=== PATIENT | male | born 1960 | race Caucasian/White ===

== ENCOUNTER 2019-03-31 12:34 | Outpatient (REF) | payer BC, SELFPAY | END 2019-03-31 12:54 | LOC: NCHCN 12:34 | PROVIDERS: PCP Internal Medicine; Visit Provider Internal Medicine | DX: Z00.00 Encounter for general adult medical examination without abnormal findings (principal); Z12.5 Encounter for screening for malignant neoplasm of prostate | CPT/HCPCS: 84153 ==

== ENCOUNTER 2021-08-31 15:29 | Outpatient (REF) | payer OTHER, SELFPAY ==
[2021-08-31 17:00] LABS: BUN 20 mg/dL (7-18); Calcium 8.7 mg/dL (8.5-10.1); Calculated LDL 152 mg/dL (<100); Chloride 102 mmol/L (98-107); Cholesterol 259 mg/dL (<200); Glucose 93 mg/dL (74-106); HDL Cholesterol 99 mg/dL (40-60); Potassium 4.8 mmol/L (3.5-5.1); Sodium 138 mmol/L (136-145); Triglyceride 44 mg/dL (<150)
== END 2021-08-31 15:30 | disposition home or self-care (01) ==
LOC: NCHCN 15:29
PROVIDERS: PCP Internal Medicine; Visit Provider Internal Medicine
DX: Z00.00 Encounter for general adult medical examination without abnormal findings (principal); I72.3 Aneurysm of iliac artery; Z13.220 Encounter for screening for lipoid disorders
CPT/HCPCS: 80048; 80061

== ENCOUNTER 2023-01-05 09:40 | Outpatient (REF) | payer OTHER, SELFPAY ==
[2023-01-05 14:30] LABS: ALT 37 U/L (16-63); AST 35 U/L (15-37); Albumin 3.5 g/dL (3.4-5.0); Alkaline Phosphatase 65 U/L (46-116); Anion Gap 7.2 mmol/L (3-11); BUN 22 mg/dL (7-18); Bilirubin, Total 0.6 mg/dL (0.2-1.0); CO2 28.8 mmol/L (21.0-32.0); CREATININE 0.8 mg/dL (0.70-1.30); Calcium 8.8 mg/dL (8.5-10.1); Calculated LDL 130 mg/dL (<100); Chloride 102 mmol/L (98-107); Cholesterol 220 mg/dL (<200); Estimated GFR 99.44 (mL/min/1.73m2); Glucose 89 mg/dL (74-106); HDL Cholesterol 82 mg/dL (40-60); Sodium 138 mmol/L (136-145); Total Protein 7.8 g/dL (6.4-8.2); Triglyceride 42 mg/dL (<150)
[2023-01-05 22:56] LABS: PSA, Screening 1.3 ng/mL (<=4.5)
== END 2023-01-05 09:41 | disposition home or self-care (01) ==
LOC: NCHCN 09:40
PROVIDERS: PCP Internal Medicine; Visit Provider Internal Medicine
DX: Z00.00 Encounter for general adult medical examination without abnormal findings (principal); Z12.5 Encounter for screening for malignant neoplasm of prostate; E78.5 Hyperlipidemia, unspecified
CPT/HCPCS: 80053; 80061; 84153

== ENCOUNTER 2024-09-04 18:20 | Outpatient (REF) | payer OTHER, SELFPAY ==
[2024-09-04 21:44] LABS: HCT 41.9 % (40.0-50.0); HGB 13.4 g/dL (13.5-17.5); MCH 26.9 pg (27.0-33.0); MCV 84 fL (80-95); MPV 9.3 fL (8.0-11.0); Platelet Count 330 10^3/uL (130-400); RBC 4.98 10^6/uL (4.36-5.78); RDW 13.5 % (11.8-14.1); RDW-SD 41.6 fL
[2024-09-04 23:13] LABS: ALT 35 U/L (16-63); AST 33 U/L (15-37); Albumin 3.7 g/dL (3.4-5.0); Alkaline Phosphatase 67 U/L (46-116); Anion Gap 5.2 mmol/L (3-11); BUN 18 mg/dL (7-18); Bilirubin, Total 0.53 mg/dL (0.2-1.0); CO2 28.8 mmol/L (21.0-32.0); Calcium 9.5 mg/dL (8.5-10.1); Calculated LDL 119 mg/dL (<100); Chloride 103 mmol/L (98-107); Cholesterol 218 mg/dL (<200); Estimated GFR 84.05 (mL/min/1.73m2); Glucose 94 mg/dL (74-106); HDL Cholesterol 88 mg/dL (40-60); Potassium 4.4 mmol/L (3.5-5.1); Sodium 137 mmol/L (136-145); Total Protein 7.9 g/dL (6.4-8.2); Triglyceride 58 mg/dL (<150)
[2024-09-05 18:52] LABS: PSA, Screening 1.6 ng/mL (<=4.5)
== END 2024-09-04 18:21 | disposition home or self-care (01) ==
LOC: NCHCN 18:20
PROVIDERS: PCP Internal Medicine; Visit Provider Internal Medicine
DX: G62.9 Polyneuropathy, unspecified (principal); Z12.5 Encounter for screening for malignant neoplasm of prostate; E78.5 Hyperlipidemia, unspecified
CPT/HCPCS: 80053; 80061; 84153; 85027